=== PATIENT | female | born 1975 | race Caucasian/White ===

== ENCOUNTER 2016-09-13 16:51 | Emergency (ER) | payer BC ==
[2016-09-13] MEDS ORDERED: Sodium Chloride 0.9% 10 ML Syringe FLUSH PRN (19:13)
[2016-09-13] MEDS ORDERED: HYDROmorphone 1 MG/ML Syringe IVPUSH ONE (19:13)
[2016-09-13] MEDS ORDERED: Ondansetron 4 MG/2 ML SDV IVPUSH ONE (19:14)
[2016-09-13] MEDS ORDERED: Sodium Chloride 0.9% 10 ML Syringe FLUSH ONE (19:23)
[2016-09-13] MEDS ORDERED: Iopamidol 612 MG/ML 150 ML Bottle IV SCH (19:30)
[2016-09-13 20:15] VITALS: BP 133/87
--- NOTE | 2016-09-13 22:01 | EDM.PDOC ---
ED HPI GI/ABDOMINAL - General Chief Complaint: Abdominal Pain Stated Complaint: BLOODY STOOLS Time Seen by Provider: 09/13/16 17:59 Source: Reports: Patient History Limitations: Reports: No limitations - History of Present Illness INITIAL COMMENTS - FREE TEXT/NARRATIVE: This patient comes in complaining of left upper quadrant abdominal pain. She had surgery in August 30 for repair of a hernia and some mesh was inserted. She's had some diarrhea for 3 days and has noticed a few specks of blood in it. Her pain has been going on for 3 days. She also complains of some back pain in the midline of the upper lumbar area. She's been drinking a lot of liquids there's been no vomiting. She is nauseated. She has a long history of abdominal pain. - Related Data Allergies/ADRs: Allergies Allergy/AdvReac Type Severity Reaction Status Date / Time gabapentin AdvReac Disorientat Verified 08/06/16 05:05 ion Home Meds: Home Meds clonazePAM [Clonazepam] 0.5 mg PO BID PRN 08/03/14 [History] Omeprazole 40 mg PO DAILY #30 cap.sr 10/10/14 [Rx] Venlafaxine [Effexor XR] 150 mg PO DAILY 01/31/16 [History] Acetaminophen [Tylenol] 650 mg PO ASDIRECTED PRN 07/26/16 [History] Ibuprofen 800 mg PO BID PRN 07/26/16 [History] Cyclobenzaprine [Flexeril] 10 mg PO TID PRN 08/16/16 [History] Past Medical History - Past Health History Medical/Surgical History: Denies Medical/Surgical History HEENT History: Reports: Other (see below) Other HEENT History: sometimes difficulty swallowing certain foods, lost wt. 176 at xmas now 155. 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) Other OB/BYN History: ovarian cysts; r fallopian tube and ovary removed Musculoskeletal History: Reports: Back pain, chronic Other Musculoskeletal History: 3 bulging discs- okay now, sciaticia- resolved Neurological History: Reports: Concussion Psychiatric History: Reports: Anxiety, Depression, Panic attack Hematologic History: Reports: Anemia Oncologic (Cancer) History: Reports: Other (see below) Other Oncologic History: appendacillic carcinoid Other Dermatologic History: white bubble blisters in summer - Infectious Disease History Infectious Disease History: Reports: Chicken pox - Past Surgical History HEENT Surgical History: Reports: Other (see below) Other HEENT Surgeries/Procedures: pulled 2 teeth recently GI Surgical History: Reports: Appendectomy, Cholecystectomy, Colon, Colonoscopy , EGD, Hernia repair/other Other GI Surgeries/Procedures: appendecilly carconoid, hernia surgery 07/2015 Female Surgical History: Reports: Salpingo-oophorectomy Other Female Surgeries/Procedures: right ovary and fallopian tube Oncologic Surgical History: Reports: Other (see below) Other Oncologic Surgeries/Procedures: appy and colon surgery to remove tumor Social & Family History - Family History Family Medical History: Noncontributory Cardiac: Reports: [place], Pacemaker OBGYN: Reports: Musculoskeletal: Reports: Arthritis, Back pain, chronic Psychiatric: Reports: Anxiety, Depression Endocrine/Metabolic: Reports: Diabetes, type II Hematologic: Reports: Anemia Oncologic: Reports: Lung - Tobacco Use Smoking Status *Q: Current Every Day Smoker Years of Tobacco use: 18 Packs/Tins Daily: 0.5 Used Tobacco, but Quit: No Month Tobacco Last Used: september Second Hand Smoke Exposure: No - Caffeine Use Caffeine Use: Reports: Coffee Other Caffeine Use: 2 cups - Alcohol Use Days Per Week of Alcohol Use: 0 - Recreational Drug Use Recreational Drug Use: No ED ROS GENERAL - Review of Systems Review Of Systems: See Below Constitutional: Reports: no symptoms HEENT: Reports: No symptoms Respiratory: Reports: no symptoms Cardiovascular: Reports: No symptoms Endocrine: Reports: no symptoms GI/Abdominal: Reports: Abdominal pain, Bloody stool, Diarrhea, Nausea, Vomiting : Reports: no symptoms Musculoskeletal: Reports: back pain Skin: Reports: no symptoms Neurological: Reports: no symptoms ED EXAM, GI/ABD - Physical Exam Exam: See Below General Appearance: alert, mild distress Eyes: bilateral: normal appearance Throat/Mouth: Normal inspection Head: atraumatic Neck: normal inspection Respiratory/Chest: lungs clear Cardiovascular: regular rate, rhythm, no murmur GI/Abdominal: normal bowel sounds, soft, other (There is severe tenderness in the left upper quadrant which I believe is in the area of the hernia repair) Back Exam: normal inspection, paraspinal tenderness Neurological: alert, oriented Psychiatric: normal affect Skin Exam: Warm, Dry Course - Vital Signs Last Recorded V/S: Last Vital Signs Temp 36.3 C 09/13/16 17:40 Pulse 74 09/13/16 20:15 Resp 16 09/13/16 20:15 BP 133/87 09/13/16 20:15 Pulse Ox 99 09/13/16 20:15 - Orders/Labs/Meds Orders: Active Orders 24 hr Category Date Time Status Abdomen Pelvis w Cont [CT] Stat Exams 09/13/16 19:14 Taken Saline Lock Insert [OM.PC] Urgent Oth 09/13/16 19:13 Ordered Labs: Laboratory Tests 09/13/16 09/13/16 09/13/16 Range/Units 19:24 19:24 20:14 WBC 6.4 (4.5-11.0) K/uL RBC 4.14 (3.30-5.50) M/uL Hgb 11.6 L (12.0-15.0) g/dL Hct 36.4 (36.0-48.0) % MCV 88 (80-98) fL MCH 28 (27-31) pg MCHC 32 (32-36) % Plt Count 195 (150-400) K/uL Neut % (Auto) 56 (36-66) % Lymph % (Auto) 29 (24-44) % [place] % (Auto) 9 H (2-6) % Eos % (Auto) 5 H (2-4) % Baso % (Auto) 1 (0-1) % Sodium 141 (140-148) mmol/L Potassium 4.5 (3.6-5.2) mmol/L Chloride 106 (100-108) mmol/L Carbon Dioxide 27 (21-32) mmol/L Anion Gap 7.9 (5.0-14.0) mmol/L BUN 16 D (7-18) mg/dL Creatinine 0.8 (0.6-1.0) mg/dL Est Cr Clr Drug Dosing TNP Estimated GFR (MDRD) > 60 (>60) Glucose 85 (74-106) mg/dL Calcium 8.1 L (8.5-10.1) mg/dL Total Bilirubin 0.2 (0.2-1.0) mg/dL AST 12 L (15-37) U/L ALT 17 (12-78) U/L Alkaline Phosphatase 22 L (46-116) U/L Total Protein 7.1 (6.4-8.2) g/dL Albumin 3.8 (3.4-5.0) g/dL Globulin 3.3 (2.3-3.5) g/dL Albumin/Globulin Ratio 1.2 (1.2-2.2) Urine Color Yellow Urine Appearance Slightly cloudy Urine pH 5.0 (4.5-8.0) Ur Specific [place] 1.025 (1.008-1.030) Urine Protein Negative (NEGATIVE) mg/dL Urine Glucose (UA) Normal (NEGATIVE) mg/dL Urine Ketones Negative (NEGATIVE) mg/dL Urine Occult Blood Negative (NEGATIVE) Urine Nitrite Negative (NEGATIVE) Urine Bilirubin Negative (NEGATIVE) Urine Urobilinogen 1 (NORMAL) mg/dL Ur Leukocyte Esterase Negative (NEGATIVE) Urine RBC 0-5 (0-5) Urine WBC 0-5 (0-5) Ur Epithelial Cells Moderate Amorphous Sediment Not seen Urine Bacteria Few Urine Mucus Many Meds: Medications Discontinued Medications Generic Name Dose Route Start Last Admin Trade Name Freq PRN Reason Stop Dose Admin Hydromorphone HCl 1 mg 09/13/16 19:13 09/13/16 20:17 Dilaudid IVPUSH 09/13/16 19:14 1 mg ONETIME ONE Administration Sodium Chloride 81 mls @ 3 mls/sec 09/13/16 19:30 09/13/16 20:00 Normal Saline IV 3 mls/sec ASDIRECTED ANGELITO Administration Iopamidol 150 ml 09/13/16 19:30 09/13/16 20:00 Isovue-300 (61%) IV 09/13/16 19:31 136 ml . DIRECTED ANGELITO Administration Ondansetron HCl 4 mg 09/13/16 19:14 09/13/16 20:15 Zofran IVPUSH 09/13/16 19:15 4 mg ONETIME ONE Administration Sodium Chloride 10 ml 09/13/16 19:13 09/13/16 20:00 Saline Flush FLUSH 10 ml ASDIRECTED PRN Administration Keep Vein Open Sodium Chloride 10 ml 09/13/16 19:23 09/13/16 20:16 Saline Flush FLUSH 09/13/16 19:24 10 ml ONETIME ONE Administration - Radiology Interpretation Free Text/Narrative:: Abdominal CT shows evidence of the previous hernia repair but otherwise there are no acute findings - Re-Assessments/Exams Free Text/Narrative Re-Assessment/Exam: 09/14/16 06:05 An IV was established. She was given 1 mg of Dilaudid and 4 mg of Zofran IV. A an abdominal CT was performed after return from the CT she's feeling a little bit better although still having pain. I spoke with Dr. Verduzco and he would like her to have enough pain medication to hold her until next Saturday and he will see her in clinic Departure - Departure Time of Disposition: 22:00 Disposition: Home, Self-Care 01 Condition: fair Clinical Impression: Abdominal wall pain Instructions: Abdominal Pain, Adult, [id number] Referrals: Minal Little MD [Primary Care Provider] - Forms: ED Department Discharge Additional Instructions: Prescriptions: Narco 5/325 #30 tablets, take one or 2 every 4 hours as needed for pain. This medication can cause sedation so use with caution. See Dr. Verduzco next Saturday in clinic. Call for an appointment. - My Orders Last 24 Hours: My Active Orders 09/13/16 19:13 Saline Lock Insert [OM.PC] Urgent 09/13/16 19:14 Abdomen Pelvis w Cont [CT] Stat - Assessment/Plan Last 24 Hours: My Active Orders 09/13/16 19:13 Saline Lock Insert [OM.PC] Urgent 09/13/16 19:14 Abdomen Pelvis w Cont [CT] Stat
== END 2016-09-13 22:33 | disposition home or self-care (01) ==
LOC: JP.ED 16:51
DX: R10.12 Left upper quadrant pain (principal); K21.9 Gastro-esophageal reflux disease without esophagitis; F41.0 Panic disorder [episodic paroxysmal anxiety]; F32.9 Major depressive disorder, single episode, unspecified; F17.210 Nicotine dependence, cigarettes, uncomplicated; Z90.49 Acquired absence of other specified parts of digestive tract; Z90.710 Acquired absence of both cervix and uterus; Z79.899 Other long term (current) drug therapy; Z88.8 Allergy status to other drugs, medicaments and biological substances
CPT/HCPCS: 36415; 74177; 80053; 81001; 85025; 96374; 96375; 99284; J1170; J2405; J7030; J7050

== ENCOUNTER 2016-09-21 04:07 | Emergency (ER) | payer BC ==
[2016-09-21] MEDS ORDERED: Sodium Chloride 0.9% 10 ML Syringe FLUSH ONE (04:59)
[2016-09-21] MEDS ORDERED: Iopamidol 612 MG/ML 150 ML Bottle IV SCH (05:00)
[2016-09-21] MEDS ORDERED: Sodium Chloride 0.9% 100 ML IV SCH (05:00)
--- NOTE | 2016-09-21 07:07 | EDM.PDOC ---
<Uziel Gil - Last Filed: 09/21/16 07:01> ED HPI GI/ABDOMINAL - General Chief Complaint: Abdominal Pain Stated Complaint: RT SIDE AB PAIN Time Seen by Provider: 09/21/16 04:39 Source: Reports: Patient History Limitations: Reports: No limitations - History of Present Illness INITIAL COMMENTS - FREE TEXT/NARRATIVE: History of present illness: [41-year-old female comes in complaining of right lower quadrant abdominal pain 10 over 10 in intensity. It is searing stabbing pain. She came from work. About a month ago she had surgery in which mesh was put in for a abdominal wall hernia in the right lower quadrant. She feels that her pain is somehow related to that surgery. She's had no nausea vomiting constipation diarrhea dysuria she 's had no fevers or chills cough or cold symptoms. I've reviewed the has a prescription on her current program and notes that she's had this several prescriptions for oxycodone and hydrocodone lately in the last one being September 13 in which she got to 30 hydrocodone.] Review of systems: As per history of present illness and below otherwise all systems reviewed and negative. Past medical history: As per history of present illness and as reviewed below otherwise noncontributory. Surgical history: As per history of present illness and as reviewed below otherwise noncontributory. Social history: No reported history of drug or alcohol abuse. Family history: As per history of present illness and as reviewed below otherwise noncontributory. Physical exam: HEENT: Atraumatic, normocephalic, pupils reactive, negative for conjunctival pallor or scleral icterus, mucous membranes moist, throat clear, neck supple, nontender, trachea midline. Lungs: Clear to auscultation, breath sounds equal bilaterally, chest nontender. Heart: S1S2, regular, negative for clicks, rubs, or JVD. Abdomen: Belly is soft with active bowel sounds but she seems to overreact with palpation of right lower quadrant. Pelvis: Stable nontender. Genitourinary: Deferred. Rectal: Deferred. Extremities: Atraumatic, negative for cords or calf pain. Neurovascular unremarkable. Neuro: Awake, alert, oriented. Cranial nerves II through XII unremarkable. Cerebellum unremarkable. Motor and sensory unremarkable throughout. Exam nonfocal. Diagnostics: [CBC UA and metabolic panel are unremarkable abdominal pelvic CT is done and is likewise unremarkable] Therapeutics: [] Impression: [Right lower quadrant abdominal pain] Plan: [Reluctant to give her narcotics I think it might be that she is having issues with necrotic sore developing hyperalgesia. I explained this to her. Dr. Verduzco and Alice are making rounds upstairs and were asking him to come down and see her when they're done.] Definitive disposition and diagnosis as appropriate pending reevaluation and review of above. - Related Data Allergies/ADRs: Allergies Allergy/AdvReac Type Severity Reaction Status Date / Time gabapentin AdvReac Disorientat Verified 09/21/16 04:25 ion Home Meds: Home Meds clonazePAM [Clonazepam] 0.5 mg PO BID PRN 08/03/14 [History] Omeprazole 40 mg PO DAILY #30 cap.sr 10/10/14 [Rx] Venlafaxine [Effexor XR] 150 mg PO DAILY 01/31/16 [History] Acetaminophen [Tylenol] 650 mg PO ASDIRECTED PRN 07/26/16 [History] Ibuprofen 800 mg PO BID PRN 07/26/16 [History] Past Medical History - Past Health History Medical/Surgical History: Denies Medical/Surgical History HEENT History: Reports: Other (see below) Other HEENT History: sometimes difficulty swallowing certain foods, lost wt. 176 at xmas now 155. 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) Other OB/BYN History: ovarian cysts; r fallopian tube and ovary removed Musculoskeletal History: Reports: Back pain, chronic Other Musculoskeletal History: 3 bulging discs- okay now, sciaticia- resolved Neurological History: Reports: Concussion Psychiatric History: Reports: Anxiety, Depression, Panic attack Hematologic History: Reports: Anemia Oncologic (Cancer) History: Reports: Other (see below) Other Oncologic History: appendacillic carcinoid Other Dermatologic History: white bubble blisters in summer - Infectious Disease History Infectious Disease History: Reports: Chicken pox - Past Surgical History HEENT Surgical History: Reports: Other (see below) Other HEENT Surgeries/Procedures: pulled 2 teeth recently GI Surgical History: Reports: Appendectomy, Cholecystectomy, Colon, Colonoscopy , EGD, Hernia repair/other Other GI Surgeries/Procedures: appendecilly carconoid, hernia surgery 07/2015 Female Surgical History: Reports: Salpingo-oophorectomy Other Female Surgeries/Procedures: right ovary and fallopian tube Oncologic Surgical History: Reports: Other (see below) Other Oncologic Surgeries/Procedures: appy and colon surgery to remove tumor Social & Family History - Family History Family Medical History: Noncontributory Cardiac: Reports: [place], Pacemaker OBGYN: Reports: Musculoskeletal: Reports: Arthritis, Back pain, chronic Psychiatric: Reports: Anxiety, Depression Endocrine/Metabolic: Reports: Diabetes, type II Hematologic: Reports: Anemia Oncologic: Reports: Lung - Tobacco Use Smoking Status *Q: Current Every Day Smoker Years of Tobacco use: 18 Packs/Tins Daily: 0.5 Used Tobacco, but Quit: No Month Tobacco Last Used: september Second Hand Smoke Exposure: No - Caffeine Use Caffeine Use: Reports: Coffee, Soda Other Caffeine Use: 2 cups - Alcohol Use Days Per Week of Alcohol Use: 0 - Recreational Drug Use Recreational Drug Use: No ED ROS GENERAL - Review of Systems Review Of Systems: ROS reveals no pertinent complaints other than HPI. ED EXAM, GI/ABD - Physical Exam Exam: See Below Course - Vital Signs Last Recorded V/S: Last Vital Signs Temp 97.3 F 09/21/16 08:45 Pulse 69 09/21/16 08:45 Resp 14 09/21/16 04:22 BP 148/65 H 09/21/16 08:45 Pulse Ox 100 09/21/16 04:22 - Orders/Labs/Meds Orders: Active Orders 24 hr Category Date Time Status Abdomen Pelvis w Cont [CT] Stat Exams 09/21/16 04:49 Taken Labs: Laboratory Tests 09/21/16 09/21/16 09/21/16 Range/Units 04:55 04:55 04:55 WBC 7.4 (4.5-11.0) K/uL RBC 3.94 (3.30-5.50) M/uL Hgb 11.1 L (12.0-15.0) g/dL Hct 34.4 L (36.0-48.0) % MCV 87 (80-98) fL MCH 28 (27-31) pg MCHC 32 (32-36) % Plt Count 174 (150-400) K/uL Neut % (Auto) 56 (36-66) % Lymph % (Auto) 30 (24-44) % [place] % (Auto) 8 H (2-6) % Eos % (Auto) 6 H (2-4) % Baso % (Auto) 0 (0-1) % Sodium 141 (140-148) mmol/L Potassium 4.0 (3.6-5.2) mmol/L Chloride 105 (100-108) mmol/L Carbon Dioxide 29 (21-32) mmol/L Anion Gap 7.3 (5.0-14.0) mmol/L BUN 15 (7-18) mg/dL Creatinine 0.9 (0.6-1.0) mg/dL Est Cr Clr Drug Dosing 96.99 mL/min Estimated GFR (MDRD) > 60 (>60) Glucose 88 (74-106) mg/dL Lactic Acid 0.8 (0.4-2.0) mmol/L Calcium 8.4 L (8.5-10.1) mg/dL Total Bilirubin 0.2 (0.2-1.0) mg/dL AST 15 (15-37) U/L ALT 19 (12-78) U/L Alkaline Phosphatase 24 L (46-116) U/L C-Reactive Protein 0.11 (0.0-0.3) mg/dL Total Protein 7.2 (6.4-8.2) g/dL Albumin 4.1 (3.4-5.0) g/dL Globulin 3.1 (2.3-3.5) g/dL Albumin/Globulin Ratio 1.3 (1.2-2.2) Urine Color Urine Appearance Urine pH (4.5-8.0) Ur Specific [place] (1.008-1.030) Urine Protein (NEGATIVE) mg/dL Urine Glucose (UA) (NEGATIVE) mg/dL Urine Ketones (NEGATIVE) mg/dL Urine Occult Blood (NEGATIVE) Urine Nitrite (NEGATIVE) Urine Bilirubin (NEGATIVE) Urine Urobilinogen (NORMAL) mg/dL Ur Leukocyte Esterase (NEGATIVE) Urine RBC (0-5) Urine WBC (0-5) Ur Epithelial Cells Amorphous Sediment Urine Bacteria Urine Mucus 09/21/16 Range/Units 06:17 WBC (4.5-11.0) K/uL RBC (3.30-5.50) M/uL Hgb (12.0-15.0) g/dL Hct (36.0-48.0) % MCV (80-98) fL MCH (27-31) pg MCHC (32-36) % Plt Count (150-400) K/uL Neut % (Auto) (36-66) % Lymph % (Auto) (24-44) % [place] % (Auto) (2-6) % Eos % (Auto) (2-4) % Baso % (Auto) (0-1) % Sodium (140-148) mmol/L Potassium (3.6-5.2) mmol/L Chloride (100-108) mmol/L Carbon Dioxide (21-32) mmol/L Anion Gap (5.0-14.0) mmol/L BUN (7-18) mg/dL Creatinine (0.6-1.0) mg/dL Est Cr Clr Drug Dosing mL/min Estimated GFR (MDRD) (>60) Glucose (74-106) mg/dL Lactic Acid (0.4-2.0) mmol/L Calcium (8.5-10.1) mg/dL Total Bilirubin (0.2-1.0) mg/dL AST (15-37) U/L ALT (12-78) U/L Alkaline Phosphatase (46-116) U/L C-Reactive Protein (0.0-0.3) mg/dL Total Protein (6.4-8.2) g/dL Albumin (3.4-5.0) g/dL Globulin (2.3-3.5) g/dL Albumin/Globulin Ratio (1.2-2.2) Urine Color Yellow Urine Appearance Clear Urine pH 7.0 (4.5-8.0) Ur Specific [place] 1.000 L (1.008-1.030) Urine Protein Negative (NEGATIVE) mg/dL Urine Glucose (UA) Normal (NEGATIVE) mg/dL Urine Ketones Negative (NEGATIVE) mg/dL Urine Occult Blood Moderate (NEGATIVE) Urine Nitrite Negative (NEGATIVE) Urine Bilirubin Negative (NEGATIVE) Urine Urobilinogen Normal (NORMAL) mg/dL Ur Leukocyte Esterase Small (NEGATIVE) Urine RBC 0-5 (0-5) Urine WBC 0-5 (0-5) Ur Epithelial Cells Many Amorphous Sediment Rare Urine Bacteria Not seen Urine Mucus Not seen Meds: Medications Discontinued Medications Generic Name Dose Route Start Last Admin Trade Name Cassius PRN Reason Stop Dose Admin Sodium Chloride 100 mls @ 3 mls/sec 09/21/16 05:00 09/21/16 05:24 Normal Saline IV 3 mls/sec ASDIRECTED ANGELITO Administration Iopamidol 134 ml 09/21/16 05:00 09/21/16 05:24 Isovue-300 (61%) IV 09/21/16 05:01 134 ml . DIRECTED ANGELITO Administration Ketorolac Tromethamine 60 mg 09/21/16 08:31 09/21/16 08:40 Toradol IM 09/21/16 08:32 60 mg ONETIME ONE Administration Sodium Chloride 10 ml 09/21/16 04:59 09/21/16 05:06 Saline Flush FLUSH 09/21/16 05:00 10 ml ONETIME ONE Administration Departure - Departure Disposition: Home, Self-Care 01 Clinical Impression: Postoperative abdominal pain Instructions: Abdominal Pain, Adult, [id number] Referrals: Minal Little MD [Primary Care Provider] - Forms: ED Department Discharge Care Plan Goals: Medications and follow up as prescribed and recommended by Alice Blunt. <Esau De Leon - Last Filed: 09/21/16 10:43> Course - Re-Assessments/Exams Free Text/Narrative Re-Assessment/Exam: 09/21/16 08:32 Patient was evaluated by surgery, Alice Blunt. Recommendations were for 60 mg of Toradol IM one dose, and she wrote prescriptions for some additional pain medications. She'll follow up in clinic. Departure - Departure Time of Disposition: 09:01 Condition: good
[2016-09-21] MEDS ORDERED: Ketorolac 60 MG/2 ML SDV IM ONE (08:31)
[2016-09-21 09:00] VITALS: BP 148/65
== END 2016-09-21 09:01 | disposition home or self-care (01) ==
LOC: JP.ED 04:07
DX: G89.18 Other acute postprocedural pain (principal); R10.31 Right lower quadrant pain; F41.9 Anxiety disorder, unspecified; F32.9 Major depressive disorder, single episode, unspecified; Z86.2 Personal history of diseases of the blood and blood-forming organs and certain disorders involving the immune mechanism; K21.9 Gastro-esophageal reflux disease without esophagitis; F17.210 Nicotine dependence, cigarettes, uncomplicated; Z90.49 Acquired absence of other specified parts of digestive tract; Z79.899 Other long term (current) drug therapy; Z88.8 Allergy status to other drugs, medicaments and biological substances
CPT/HCPCS: 36415; 74177; 80053; 81001; 83605; 85025; 86140; 96360; 96361; 96372; 99284; J1885; J7030; J7050

== ENCOUNTER 2016-10-10 19:12 | Emergency (ER) | payer BC ==
[2016-10-10 19:37] VITALS: BP 123/83
[2016-10-10] MEDS ORDERED: Bupivacaine 0.5%/EPINEPHrine 1:200,000 1.8 ML Cartridge INJECT ONE (20:12)
--- NOTE | 2016-10-10 20:13 | EDM.PDOC ---
[id number]/FACE PAIN Time Seen by Provider: 10/10/16 20:13 Source: Reports: Patient History Limitations: Reports: No limitations - History of Present Illness INITIAL COMMENTS - FREE TEXT/NARRATIVE: 41-year-old female has been having right mandibular dental pain for the past 5 or 6 days, she has an appointment with a dentist on Saturday next week but tonight a small piece of her first molar on the right mandible broke off. She is having more discomfort and pain. Location: Reports: mouth Quality: Reports: Sharp, Stabbing Worsens with: Reports: Other (Worsens with eating or touching the tooth) Associated symptoms: Reports: other (No facial swelling). Denies: fever/chills - Related Data Allergies/ADRs: Allergies Allergy/AdvReac Type Severity Reaction Status Date / Time gabapentin AdvReac Disorientat Verified 09/21/16 04:25 ion Home Meds: Home Meds clonazePAM [Clonazepam] 0.5 mg PO BID PRN 08/03/14 [History] Omeprazole 40 mg PO DAILY #30 cap.sr 10/10/14 [Rx] Venlafaxine [Effexor XR] 150 mg PO DAILY 01/31/16 [History] Acetaminophen [Tylenol] 650 mg PO ASDIRECTED PRN 07/26/16 [History] Ibuprofen 800 mg PO BID PRN 07/26/16 [History] Past Medical History - Past Health History Medical/Surgical History: Denies Medical/Surgical History HEENT History: Reports: Other (see below) Other HEENT History: sometimes difficulty swallowing certain foods, lost wt. 176 at xmas now 155. 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: , Other (see below) Other OB/BYN History: ovarian cysts; r fallopian tube and ovary removed Musculoskeletal History: Reports: Back pain, chronic Other Musculoskeletal History: 3 bulging discs- okay now, sciaticia- resolved Neurological History: Reports: Concussion Psychiatric History: Reports: Anxiety, Depression, Panic attack Hematologic History: Reports: Anemia Oncologic (Cancer) History: Reports: Other (see below) Other Oncologic History: appendacillic carcinoid Other Dermatologic History: white bubble blisters in summer - Infectious Disease History Infectious Disease History: Reports: Chicken pox - Past Surgical History HEENT Surgical History: Reports: Other (see below) Other HEENT Surgeries/Procedures: pulled 2 teeth recently GI Surgical History: Reports: Appendectomy, Cholecystectomy, Colon, Colonoscopy , EGD, Hernia repair/other Other GI Surgeries/Procedures: appendecilly carconoid, hernia surgery 07/2015 Female Surgical History: Reports: Salpingo-oophorectomy Other Female Surgeries/Procedures: right ovary and fallopian tube Oncologic Surgical History: Reports: Other (see below) Other Oncologic Surgeries/Procedures: appy and colon surgery to remove tumor Social & Family History - Family History Family Medical History: Noncontributory Cardiac: Reports: [place], Pacemaker OBGYN: Reports: Musculoskeletal: Reports: Arthritis, Back pain, chronic Psychiatric: Reports: Anxiety, Depression Endocrine/Metabolic: Reports: Diabetes, type II Hematologic: Reports: Anemia Oncologic: Reports: Lung - Tobacco Use Smoking Status *Q: Current Every Day Smoker Years of Tobacco use: 18 Packs/Tins Daily: 0.2 Used Tobacco, but Quit: No Month Tobacco Last Used: september Second Hand Smoke Exposure: No - Caffeine Use Caffeine Use: Reports: Coffee Other Caffeine Use: 2 cups - Alcohol Use Days Per Week of Alcohol Use: 0 - Recreational Drug Use Recreational Drug Use: No ED ROS ENT - Review of Systems Review Of Systems: See Below Constitutional: Denies: fever, chills HEENT: Reports: Other (Dental pain) Respiratory: Reports: No Symptoms GI/Abdominal: Reports: No symptoms (Patient has a chronic recurring abdominal pain but no symptoms currently) Skin: Reports: no symptoms Neurological: Reports: No Symptoms ED EXAM, ENT - Physical Exam Exam: See Below Exam Limited By: No limitations General Appearance: alert, no apparent distress (She looks uncomfortable but not distressed) Mouth/Throat: Other (She does appear to have a very small amount of anterior fracture of the first molar of the right mandible. No significant swelling or redness.) Course - Vital Signs Last Recorded V/S: Last Vital Signs Temp 97.2 F 10/10/16 19:31 Pulse 72 10/10/16 19:31 Resp 16 10/10/16 19:31 BP 123/83 10/10/16 19:31 Pulse Ox 98 10/10/16 19:31 - Orders/Labs/Meds Meds: Medications Discontinued Medications Generic Name Dose Route Start Last Admin Trade Name Cassius PRN Reason Stop Dose Admin Bupivacaine HCl/Epinephrine Bitart 1.8 ml 10/10/16 20:12 10/10/16 20:16 Marcaine 0.5%/Epinephrine 1:200,000 INJECT 10/10/16 20:13 1.8 ml ONETIME ONE Administration - Re-Assessments/Exams Free Text/Narrative Re-Assessment/Exam: 10/10/16 20:44 An inferior alveolar nerve block was done on the right mandible. This was done with 1.8 mL of Sensorcaine. This gave her complete pain relief. She'll be discharged with penicillin to take 4 times daily until her dental appointment on Saturday with 6 hydrocodone to use for pain control for the first 24 hours. Departure - Departure Time of Disposition: 20:59 Disposition: Home, Self-Care 01 Condition: good Clinical Impression: Fractured tooth Qualifiers: Encounter type: initial encounter Fracture type: closed Qualified Code(s): S02.5XXA - Fracture of tooth (traumatic), initial encounter for closed fracture Instructions: Tooth Injuries Referrals: Minal Little MD [Primary Care Provider] - Forms: ED Department Discharge Care Plan Goals: Take penicillin as prescribed, ibuprofen on a regular basis and add hydrocodone if needed for the first 24 hours. See her dentist next Saturday as scheduled. Return sooner if swelling of the face or fever occurs despite antibiotic treatment.
== END 2016-10-10 20:59 | disposition home or self-care (01) ==
LOC: JP.ED 19:12
DX: S02.5XXA Fracture of tooth (traumatic), initial encounter for closed fracture (principal); K21.9 Gastro-esophageal reflux disease without esophagitis; F32.9 Major depressive disorder, single episode, unspecified; F41.0 Panic disorder [episodic paroxysmal anxiety]; Z90.49 Acquired absence of other specified parts of digestive tract; Z90.721 Acquired absence of ovaries, unilateral; Z98.890 Other specified postprocedural states; F17.210 Nicotine dependence, cigarettes, uncomplicated; Z79.899 Other long term (current) drug therapy; Z88.8 Allergy status to other drugs, medicaments and biological substances
CPT/HCPCS: 64400; 99283-25

== ENCOUNTER 2016-11-11 04:11 | Emergency (ER) | payer BC ==
[2016-11-11 04:25] VITALS: BP 129/90
--- NOTE | 2016-11-11 05:29 | EDM.PDOC ---
ED HPI RENAL/ - General Chief Complaint: Abdominal Pain Stated Complaint: LEFT SIDE ABD PAIN Time Seen by Provider: 11/11/16 04:41 Source: Reports: Patient History Limitations: Reports: No limitations - History of Present Illness INITIAL COMMENTS - FREE TEXT/NARRATIVE: History of present ill[41-year-old female presenting with burning and frequency of urination for the last 2 days. She also has developed some left low back pain. She has felt subjective fevers and chills times as well. She has had no nausea vomiting or constipation.] Review of systems: As per history of present illness and below otherwise all systems reviewed and negative. Past medical history: As per history of present illness and as reviewed below otherwise noncontributory. Surgical history: As per history of present illness and as reviewed below otherwise noncontributory. Social history: No reported history of drug or alcohol abuse. Family history: As per history of present illness and as reviewed below otherwise noncontributory. Physical exam: General: Alert and oriented in no acute distress Head: Atraumatic and normocephalic Eyes: PERRL, EOMI Oral: Free of lesions dryness or erythema Neck: Supple and nontender without masses or organomegaly or lymphadenopathy Respiratory: Clear to auscultation and adventitious sounds Cardiovascular: Regular rate and rhythm without murmur GI: Soft and nontender without masses or organomegaly : Deferred Back: Free of pain or stiffness Positive for left costovertebral percussion tenderness Diagnostics: [Urinalysis shows greater than 100 white cells and positive for bacteria This was cultured.] Therapeutics: [] Impression: [Early pyelonephritis] Plan: [We will start her on Cipro 500 mg 1 p.o. twice daily for 10 days. She is to follow-up in the clinic if she is not doing better in 3 days.] Definitive disposition and diagnosis as appropriate pending reevaluation and review of above. - Related Data Allergies/ADRs: Allergies Allergy/AdvReac Type Severity Reaction Status Date / Time gabapentin AdvReac Disorientat Verified 11/11/16 04:25 ion Home Meds: Home Meds clonazePAM [Clonazepam] 0.5 mg PO BID PRN 08/03/14 [History] Omeprazole 40 mg PO DAILY #30 cap.sr 10/10/14 [Rx] Venlafaxine [Effexor XR] 150 mg PO DAILY 01/31/16 [History] Acetaminophen [Tylenol] 650 mg PO ASDIRECTED PRN 07/26/16 [History] Ibuprofen 800 mg PO BID PRN 07/26/16 [History] Past Medical History - Past Health History Medical/Surgical History: Denies Medical/Surgical History HEENT History: Reports: Other (see below) Other HEENT History: sometimes difficulty swallowing certain foods, lost wt. 176 at xmas now 155. 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: , Other (see below) Other OB/BYN History: ovarian cysts; r fallopian tube and ovary removed Musculoskeletal History: Reports: Back pain, chronic Other Musculoskeletal History: 3 bulging discs- okay now, sciaticia- resolved Neurological History: Reports: Concussion Psychiatric History: Reports: Anxiety, Depression, Panic attack Hematologic History: Reports: Anemia Oncologic (Cancer) History: Reports: Other (see below) Other Oncologic History: appendacillic carcinoid Other Dermatologic History: white bubble blisters in summer - Infectious Disease History Infectious Disease History: Reports: Chicken pox - Past Surgical History HEENT Surgical History: Reports: Other (see below) Other HEENT Surgeries/Procedures: pulled 2 teeth recently GI Surgical History: Reports: Appendectomy, Cholecystectomy, Colon, Colonoscopy , EGD, Hernia repair/other Other GI Surgeries/Procedures: appendecilly carconoid, hernia surgery 07/2015 Female Surgical History: Reports: Salpingo-oophorectomy Other Female Surgeries/Procedures: right ovary and fallopian tube Oncologic Surgical History: Reports: Other (see below) Other Oncologic Surgeries/Procedures: appy and colon surgery to remove tumor Social & Family History - Family History Family Medical History: Noncontributory Cardiac: Reports: [place], Pacemaker OBGYN: Reports: Musculoskeletal: Reports: Arthritis, Back pain, chronic Psychiatric: Reports: Anxiety, Depression Endocrine/Metabolic: Reports: Diabetes, type II Hematologic: Reports: Anemia Oncologic: Reports: Lung - Tobacco Use Smoking Status *Q: Current Every Day Smoker Years of Tobacco use: 18 Packs/Tins Daily: 0.2 Used Tobacco, but Quit: No Month Tobacco Last Used: september Second Hand Smoke Exposure: No - Caffeine Use Caffeine Use: Reports: Coffee Other Caffeine Use: 2 cups - Alcohol Use Days Per Week of Alcohol Use: 0 - Recreational Drug Use Recreational Drug Use: No ED ROS GENERAL - Review of Systems Review Of Systems: ROS reveals no pertinent complaints other than HPI. ED EXAM, RENAL/ - Physical Exam Exam: See Below Course - Vital Signs Last Recorded V/S: Last Vital Signs Temp 35.7 C 11/11/16 04:24 Pulse 84 11/11/16 04:24 Resp 16 11/11/16 04:24 BP 129/90 11/11/16 04:24 Pulse Ox 100 11/11/16 04:24 - Orders/Labs/Meds Orders: Active Orders 24 hr Category Date Time Status CULTURE URINE [RM] Stat Lab 11/11/16 05:23 Uncollected Labs: Laboratory Tests 11/11/16 Range/Units 04:46 Urine Color Red Urine Appearance Cloudy Urine pH 7.0 (4.5-8.0) Ur Specific [place] 1.005 L (1.008-1.030) Urine Protein Trace (NEGATIVE) mg/dL Urine Glucose (UA) Normal (NEGATIVE) mg/dL Urine Ketones Negative (NEGATIVE) mg/dL Urine Occult Blood Large (NEGATIVE) Urine Nitrite Negative (NEGATIVE) Urine Bilirubin Negative (NEGATIVE) Urine Urobilinogen Normal (NORMAL) mg/dL Ur Leukocyte Esterase Large (NEGATIVE) Urine RBC >100 H (0-5) Urine WBC 5-10 H (0-5) Ur Epithelial Cells Moderate Amorphous Sediment Not seen Urine Bacteria Few Urine Mucus Not seen Departure - Departure Time of Disposition: 05:28 Disposition: Home, Self-Care 01 Condition: good Clinical Impression: Pyelonephritis Forms: ED Department Discharge Additional Instructions: Please follow-up in the clinic in 3-4 days if not improving. Especially if you are experiencing fevers and chills still. In the future if you have symptoms like this would be better for you to seek treatment earlier so that you do not develop a kidney infection. - My Orders Last 24 Hours: My Active Orders 11/11/16 05:23 CULTURE URINE [RM] Stat - Assessment/Plan Last 24 Hours: My Active Orders 11/11/16 05:23 CULTURE URINE [RM] Stat
== END 2016-11-11 05:57 | disposition home or self-care (01) ==
LOC: JP.ED 04:11
DX: N12 Tubulo-interstitial nephritis, not specified as acute or chronic (principal); K21.9 Gastro-esophageal reflux disease without esophagitis; F41.9 Anxiety disorder, unspecified; F32.9 Major depressive disorder, single episode, unspecified; F17.210 Nicotine dependence, cigarettes, uncomplicated; Z86.2 Personal history of diseases of the blood and blood-forming organs and certain disorders involving the immune mechanism; Z90.49 Acquired absence of other specified parts of digestive tract; Z88.8 Allergy status to other drugs, medicaments and biological substances; Z79.899 Other long term (current) drug therapy
CPT/HCPCS: 81001; 87086; 99284

== ENCOUNTER 2016-11-12 18:02 | Emergency (ER) | payer BC ==
[2016-11-12 19:11] VITALS: BP 148/92
[2016-11-12] MEDS ORDERED: Bupivacaine 0.5%/EPINEPHrine 1:200,000 1.8 ML Cartridge INJECT ONE (19:45)
--- NOTE | 2016-11-12 20:03 | EDM.PDOC ---
[id number] Time Seen by Provider: 11/12/16 19:40 Source: Reports: Patient History Limitations: Reports: No limitations - History of Present Illness INITIAL COMMENTS - FREE TEXT/NARRATIVE: 41-year-old female who was trying to get in to see her dentist this week has ongoing pain of the molars of the right maxillary area. She was started on ciprofloxacin 2 days ago for UTI so is already on antibiotics. No fever or facial swelling. Severity: moderate Quality: Reports: Ache, Stabbing Worsens with: Reports: Eating Associated symptoms: Reports: denies other symptoms - Related Data Allergies/ADRs: Allergies Allergy/AdvReac Type Severity Reaction Status Date / Time gabapentin AdvReac Disorientat Verified 11/12/16 19:16 ion Home Meds: Home Meds clonazePAM [Clonazepam] 0.5 mg PO BID PRN 08/03/14 [History] Omeprazole 40 mg PO DAILY #30 cap.sr 10/10/14 [Rx] Venlafaxine [Effexor XR] 150 mg PO DAILY 01/31/16 [History] Acetaminophen [Tylenol] 650 mg PO ASDIRECTED PRN 07/26/16 [History] Ibuprofen 800 mg PO BID PRN 07/26/16 [History] Past Medical History - Past Health History Medical/Surgical History: Denies Medical/Surgical History HEENT History: Reports: Other (see below) Other HEENT History: sometimes difficulty swallowing certain foods, lost wt. 176 at xmas now 155. 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 below) Other OB/BYN History: ovarian cysts; r fallopian tube and ovary removed Musculoskeletal History: Reports: Back pain, chronic Other Musculoskeletal History: 3 bulging discs- okay now, sciaticia- resolved Neurological History: Reports: Concussion Psychiatric History: Reports: Anxiety, Depression, Panic attack Hematologic History: Reports: Anemia Immunologic History: Reports: None Oncologic (Cancer) History: Reports: Other (see below) Other Oncologic History: appendacillic carcinoid Other Dermatologic History: white bubble blisters in summer - Infectious Disease History Infectious Disease History: Reports: Chicken pox - Past Surgical History HEENT Surgical History: Reports: Other (see below) Other HEENT Surgeries/Procedures: pulled 2 teeth recently GI Surgical History: Reports: Appendectomy, Cholecystectomy, Colon, Colonoscopy , EGD, Hernia repair/other Other GI Surgeries/Procedures: appendecilly carconoid, hernia surgery 07/2015 Female Surgical History: Reports: Salpingo-oophorectomy Other Female Surgeries/Procedures: right ovary and fallopian tube Oncologic Surgical History: Reports: Other (see below) Other Oncologic Surgeries/Procedures: appy and colon surgery to remove tumor Social & Family History - Family History Family Medical History: Noncontributory Cardiac: Reports: [place], Pacemaker OBGYN: Reports: Musculoskeletal: Reports: Arthritis, Back pain, chronic Psychiatric: Reports: Anxiety, Depression Endocrine/Metabolic: Reports: Diabetes, type II Hematologic: Reports: Anemia Oncologic: Reports: Lung - Tobacco Use Smoking Status *Q: Current Every Day Smoker Years of Tobacco use: 22 Packs/Tins Daily: 0.5 Used Tobacco, but Quit: No Month Tobacco Last Used: september Second Hand Smoke Exposure: No - Caffeine Use Caffeine Use: Reports: Coffee, Energy drinks, Tea Other Caffeine Use: 2 cups - Alcohol Use Days Per Week of Alcohol Use: 0 - Recreational Drug Use Recreational Drug Use: No ED ROS ENT - Review of Systems Review Of Systems: See Below Constitutional: Denies: fever HEENT: Reports: Dental pain Respiratory: Denies: Shortness of Breath Cardiovascular: Denies: Chest pain GI/Abdominal: Denies: Abdominal pain : Reports: other (On antibiotics for a current UTI which is improving) ED EXAM, ENT - Physical Exam Exam: See Below Exam Limited By: No limitations General Appearance: alert, no apparent distress (Not distressed but looks uncomfortable) Mouth/Throat: Other (No significant erythema around the right maxillary molars but she is exquisitely tender to percussion of the second molar) Respiratory/Chest: no respiratory distress Neurological: alert Psychiatric: depressed mood Skin: Warm, Dry Course - Vital Signs Last Recorded V/S: Last Vital Signs Temp 98.0 F 11/12/16 19:20 Pulse 69 11/12/16 19:20 Resp 16 11/12/16 19:20 BP 148/92 H 11/12/16 19:20 Pulse Ox 96 11/12/16 19:20 - Orders/Labs/Meds Meds: Medications Discontinued Medications Generic Name Dose Route Start Last Admin Trade Name Cassius PRN Reason Stop Dose Admin Bupivacaine HCl/Epinephrine Bitart 1.8 ml 11/12/16 19:45 11/12/16 19:53 Marcaine 0.5%/Epinephrine 1:200,000 INJECT 11/12/16 19:46 1.8 ml ONETIME ONE Administration - Re-Assessments/Exams Free Text/Narrative Re-Assessment/Exam: 11/12/16 19:59 A superior alveolar block was done using Sensorcaine. 10 hydrocodone was given to her for pain control to use sparingly until she is seen by the dentist. She can return if worsening or concerns especially fever or swelling. Departure - Departure Time of Disposition: 20:11 Disposition: Home, Self-Care 01 Condition: good Clinical Impression: Tooth pain Instructions: Dental Caries, [id number] Referrals: Minal Little MD [Primary Care Provider] - Forms: ED Department Discharge Care Plan Goals: Continue antibiotics, continue ibuprofen and Tylenol and add stronger pain medication sparingly if needed. See the dentist as soon as possible.
== END 2016-11-12 20:11 | disposition home or self-care (01) ==
LOC: JP.ED 18:02
DX: K08.89 Other specified disorders of teeth and supporting structures (principal); K21.9 Gastro-esophageal reflux disease without esophagitis; F41.9 Anxiety disorder, unspecified; F17.210 Nicotine dependence, cigarettes, uncomplicated; F32.9 Major depressive disorder, single episode, unspecified; Z90.49 Acquired absence of other specified parts of digestive tract; Z88.8 Allergy status to other drugs, medicaments and biological substances; Z79.899 Other long term (current) drug therapy; Z98.890 Other specified postprocedural states; Z86.2 Personal history of diseases of the blood and blood-forming organs and certain disorders involving the immune mechanism
CPT/HCPCS: 64400; 99283-25

== ENCOUNTER 2016-11-25 02:11 | Emergency (ER) | payer BC ==
[2016-11-25 02:38] VITALS: BP 141/87
--- NOTE | 2016-11-25 03:51 | EDM.PDOC ---
[id number]: ABD PAIN Time Seen by Provider: 11/25/16 02:45 Source of Information: Reports: Patient History Limitations: Reports: No Limitations - History of Present Illness INITIAL COMMENTS - FREE TEXT/NARRATIVE: 41-year-old female in with abdominal pain and rectal bleeding for the past 3 days. This is a chronic recurrent problem for her, several surgeries have failed to improve her situation. Workups tend to be negative. She said she had a "low-grade" fever yesterday. No constipation currently. A CT scan less than a month ago was negative. Onset: Gradual Location: Reports: Abdomen Severity: Moderate Associated Symptoms: Reports: Fever/Chills, Loss of Appetite, Other (Bloody stools) Abdominal Pain Score (Numeric/FACES): 9 - Related Data Allergies Allergy/AdvReac Type Severity Reaction Status Date / Time gabapentin AdvReac Disorientat Verified 11/12/16 19:16 ion Home Meds: Home Meds clonazePAM [Clonazepam] 0.5 mg PO BID PRN 08/03/14 [History] Omeprazole 40 mg PO DAILY #30 cap.sr 10/10/14 [Rx] Venlafaxine [Effexor XR] 150 mg PO DAILY 01/31/16 [History] Acetaminophen [Tylenol] 650 mg PO ASDIRECTED PRN 07/26/16 [History] Ibuprofen 800 mg PO BID PRN 07/26/16 [History] Mirtazapine 7.5 mg PO BEDTIME 11/25/16 [History] Past Medical History - Past Health History Medical/Surgical History: Denies Medical/Surgical History HEENT History: Reports: Other (See Below) Other HEENT History: sometimes difficulty swallowing certain foods, lost wt. 176 at xmas now 155. 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: , Other (See Below) Other OB/BYN History: ovarian cysts; r fallopian tube and ovary removed Musculoskeletal History: Reports: Back Pain, Chronic Other Musculoskeletal History: 3 bulging discs- okay now, sciaticia- resolved Neurological History: Reports: Concussion Psychiatric History: Reports: Anxiety, Depression, Panic Attack Hematologic History: Reports: Anemia Immunologic History: Reports: None Oncologic (Cancer) History: Reports: Other (See Below) Other Oncologic History: appendacillic carcinoid Other Dermatologic History: white bubble blisters in summer - Infectious Disease History Infectious Disease History: Reports: Chicken Pox - Past Surgical History HEENT Surgical History: Reports: Other (See Below) GI Surgical History: Reports: Appendectomy, Cholecystectomy, Colon, Colonoscopy , EGD, Hernia Repair/Other Female Surgical History: Reports: Salpingo-Oophorectomy Oncologic Surgical History: Reports: Other (See Below) Social & Family History - Family History Family Medical History: Noncontributory Cardiac: Reports: CA, Pacemaker OBGYN: Reports: Musculoskeletal: Reports: Arthritis, Back pain, Chronic Psychiatric: Reports: Anxiety, Depression Endocrine/Metabolic: Reports: Diabetes, type II Hematologic: Reports: Anemia Oncologic: Reports: Lung - Tobacco Use Smoking Status *Q: Heavy Tobacco Smoker Years of Tobacco use: 18 Packs/Tins Daily: 1.5 Used Tobacco, but Quit: No Month Tobacco Last Used: september Second Hand Smoke Exposure: No - Caffeine Use Caffeine Use: Reports: Coffee, Tea Other Caffeine Use: 2 cups - Alcohol Use Days Per Week of Alcohol Use: 0 - Recreational Drug Use Recreational Drug Use: No ED ROS GENERAL - Review of Systems Review Of Systems: See Below Constitutional: Reports: Fever, Malaise HEENT: Reports: Other (Recent dental pain) Respiratory: Reports: No Symptoms GI/Abdominal: Reports: Abdominal Pain, Hematochezia : Reports: No Symptoms Musculoskeletal: Reports: No Symptoms Psychiatric: Reports: Depression ED EXAM, GI/ABD - Physical Exam Exam: See Below Exam Limited By: No Limitations General Appearance: Alert, No Apparent Distress (Looks uncomfortable, lying on her left side) Respiratory/Chest: No Respiratory Distress, Lungs Clear Cardiovascular: Regular Rate, Rhythm GI/Abdominal: Soft, Tenderness (Difficult to examine because even the lightest palpation causes her to wince in pain) Rectal (Female) Exam: Normal Exam Neurological: Alert, Oriented Psychiatric: Depressed Mood Skin Exam: Warm, Dry Course - Vital Signs Last Recorded V/S: Last Vital Signs Temp 97.5 F 11/25/16 02:38 Pulse 94 11/25/16 02:38 Resp 16 11/25/16 02:38 BP 141/87 H 11/25/16 02:38 Pulse Ox 100 11/25/16 02:38 - Orders/Labs/Meds Labs: Laboratory Tests 11/25/16 11/25/16 Range/Units 03:12 03:12 WBC 8.7 (4.5-11.0) K/uL RBC 4.15 (3.30-5.50) M/uL Hgb 11.6 L (12.0-15.0) g/dL Hct 36.0 (36.0-48.0) % MCV 87 (80-98) fL MCH 28 (27-31) pg MCHC 32 (32-36) % Plt Count 176 (150-400) K/uL Neut % (Auto) 62 (36-66) % Lymph % (Auto) 26 (24-44) % [place] % (Auto) 8 H (2-6) % Eos % (Auto) 3 (2-4) % Baso % (Auto) 1 (0-1) % ESR 25 (0-25) mm/hr Sodium 139 L (140-148) mmol/L Potassium 4.0 (3.6-5.2) mmol/L Chloride 103 (100-108) mmol/L Carbon Dioxide 30 (21-32) mmol/L Anion Gap 10.0 (5.0-14.0) mmol/L BUN 13 (7-18) mg/dL Creatinine 0.8 (0.6-1.0) mg/dL Est Cr Clr Drug Dosing TNP Estimated GFR (MDRD) > 60 (>60) Glucose 85 (74-106) mg/dL Calcium 7.9 L (8.5-10.1) mg/dL C-Reactive Protein 0.09 (0.0-0.3) mg/dL Lipase 105 (73-393) U/L - Re-Assessments/Exams Free Text/Narrative Re-Assessment/Exam: 11/25/16 03:50 A rectal exam was done which was normal, guaiac was negative. CBC and chemistry profile including a CRP was also negative. 11/25/16 03:58 Sedimentation rate returned 25. I went in to tell the patient that all her labs were negative including her stool guaiac and she was sound asleep. We later sleeping when she woke no further treatment was given, I was uncomfortable giving her further narcotics as she said 50 hydrocodone in the last 12 days. She can recheck with surgery next week if not improving. Departure - Departure Time of Disposition: 08:49 Disposition: Home, Self-Care 01 Condition: good Clinical Impression: Abdominal pain Qualifiers: Abdominal location: lower abdomen, unspecified Qualified Code(s): R10.30 - Lower abdominal pain, unspecified - Discharge Information Instructions: Abdominal Pain, Adult, [id number] Referrals: Minal Little MD [Primary Care Provider] - Forms: ED Department Discharge Care Plan Goals: Advance diet as tolerated and continue on your regular medications. Recheck with Dr. Verduzco or Alice Blunt next week if not improving satisfactorily.
== END 2016-11-25 08:47 | disposition home or self-care (01) ==
LOC: JP.ED 02:11
DX: R10.30 Lower abdominal pain, unspecified (principal); K21.9 Gastro-esophageal reflux disease without esophagitis; F41.0 Panic disorder [episodic paroxysmal anxiety]; F32.9 Major depressive disorder, single episode, unspecified; F17.210 Nicotine dependence, cigarettes, uncomplicated; Z90.49 Acquired absence of other specified parts of digestive tract; Z90.721 Acquired absence of ovaries, unilateral; Z98.890 Other specified postprocedural states; Z79.899 Other long term (current) drug therapy; Z88.8 Allergy status to other drugs, medicaments and biological substances
CPT/HCPCS: 36415; 80048; 82272; 83690; 85025; 85651; 86140; 99284